=== PATIENT | male | born 1950 | race Caucasian/White ===

== ENCOUNTER 2021-09-13 15:34 | Emergency (ER) | payer MEDICARE ==
[~2021-09-13 15:34] MED LIST: BACTROBAN NASAL1 G1 TOP; CLEOCIN HCL300 MG PO
[2021-09-13 18:10] LABS: HEMOGLOBIN 13.4 gm/dl (14.0-17.5); RED BLOOD COUNT 4.02 M/UL (4.20-5.50); WHITE BLOOD COUNT 21.4 K/UL (4.5-11.0)
[2021-09-13 18:36] LABS: BUN/CREATININE RATIO 23 (0-10)
[2021-09-13] MEDS ORDERED: OMNICEF 300 MG300 MG PO (20:03)
== END 2021-09-13 20:45 | disposition home or self-care (01) ==
LOC: ER1 15:34
PROVIDERS: Student in an Organized Health Care Education/Training Program
DX: J18.9 Pneumonia, unspecified organism (principal); R00.2 Palpitations; I10 Essential (primary) hypertension
CPT/HCPCS: 71045; 80053; 82550; 82553; 84484; 85025; 93005; 96374; 99285; J0696